=== PATIENT | female | born 1940 | race African-American/Black ===

== ENCOUNTER → 2016-09-19 | Outpatient (CLI) | payer OTHER ==
[~2016-09-19] MED LIST: BENICAR HCT 40-1 TAB; BENICAR HCT 40-1 TAB PO; CIPRO PO; HCTZ PO; LASIX; METRONIDAZOLE PO; NABUMETONE; SKELAXIN PO
--- NOTE | ~2016-09-19 | MY11 ---
[facility] A Service of [facility] RADIOLOGY TEXT RESULTS PATIENT: RICKY PRASAD LOCATION: [facility] : 44 UNIT #: [id number] AGE: [address]: ELVA CODY APRN SEX: F ORDER DR: [id number] [facility] [address]. [place], [place] [address] [id number] O MR#: [id number] Acc #: [id number] NAME: RICKY PRASAD : 1940 SEX: F STUDY DATE/TIME: 09/19/2016 11:27 UNIT: [facility] ROOM: STUDY DESCRIPTION: MY Mammogram Screening Dig Olegario Attending Physician: Elva Cody M.D. Ordering Physician: Elva Cody M.D. Primary Care Physician: Elva Cody M.D. MEDICAL IMAGING REPORT This report is preliminary unless electronic signature is present EXAM Bilateral digital screening mammogram with CAD. DATE OF EXAM 09/19/2016 INDICATION Breast cancer screening. 76-year-old asymptomatic female. No personal or family history of breast cancer. COMPARISON STUDIES January 23, 2011, December 22, 2009, January 17, 2009, March 01, 2008, August 23, 2007 and February 02, 2007. FINDINGS The breasts are almost entirely fatty. No suspicious findings are present. IMPRESSION No mammographic evidence of malignancy. Annual screening mammography and clinical breast exam are recommended. Patients over the age of 40 are entered into a reminder system with target due date for the next mammogram. A result letter will also be sent to the patient. BIRADS: 1 Negative. Dictated by... Deonte Valenzuela M.D. THIS IS AN ELECTRONICALLY VERIFIED REPORT Deonte Valenzuela M.D. at 09/22/2016 9:24 AM [facility] A Service of [facility] RADIOLOGY TEXT RESULTS PATIENT: RICKY PRASAD LOCATION: [facility] : 44 UNIT #: [id number] AGE: [address]: ELVA CODY APRN SEX: F ORDER DR: Isa TD: 09/19/2016 23:51 JOB #: [id number] MEDICAL IMAGING REPORT COPY
== END | disposition home or self-care (01) ==
LOC: CWCC 11:05
DX: Z12.31 Encounter for screening mammogram for malignant neoplasm of breast (principal)
CPT/HCPCS: G0202